=== PATIENT | male | born 1965 | race Caucasian/White ===

== ENCOUNTER 2017-09-27 07:38 | Inpatient (IN) | payer MEDICAID ==
[~2017-09-27] VITALS: Ht 177.8 cm; Wt 63.5 kg
[2017-09-27] MEDS ORDERED: CIPROFLOXACIN HCL 250 MG TABLET PO ONE (10:30)
[2017-09-27] MEDS ORDERED: SODIUM CHLORIDE 0.9% 1,000 ML IV ONE (11:55)
[2017-09-27 12:18] LABS: BASOPHILS % (AUTO) 0.6 % (0.0-2.0); EOSINOPHILS % (AUTO) 2.6 % (1.0-6.0); HEMATOCRIT 38.1 % (41-53); HEMOGLOBIN 13.2 g/dL (13.5-17.5); LYMPHOCYTES # (AUTO) 1.6 K/uL (1.0-4.8); MEAN CORPUSCULAR HGB CONC 34.6 G/dL (31.0-37.0); MEAN CORPUSCULAR VOLUME 81 fL (80-100); MONOCYTES # (AUTO) 0.6 K/uL (0.1-1.0); MONOCYTES % (AUTO) 7.7 % (2.0-9.0); NEUTROPHILS # (AUTO) 5.3 K/uL (1.8-7.7); NEUTROPHILS % (AUTO) 68.1 % (40.0-70.0); PLATELET COUNT (AUTO) 196 K/uL (150-450); RED BLOOD CELL COUNT(AUTO) 4.71 MIL/uL (4.50-5.90); RED CELL DISTRIBUTION WIDTH 15.4 % (11.5-14.5)
[2017-09-27 12:27] LABS: APPEARANCE,URINE CLOUDY (CLEAR); BILIRUBIN,URINE NEGATIVE (NEGATIVE); GLUCOSE, URINE (UA) NEGATIVE (NEGATIVE); KETONES,URINE NEGATIVE (NEGATIVE); LEUKOCYTE ESTERASE ,URINE LARGE (NEGATIVE); NITRATE,URINE NEGATIVE (NEGATIVE); OCCULT BLOOD,URINE LARGE (NEGATIVE); PH,URINE 7.5 (5.0-8.0); PROTEIN,URINE POS 1+ (NEGATIVE); UROBILINOGEN,URINE 0.2 mg/dL (<=1.0)
[2017-09-27 12:35] LABS: ALANINE AMINOTRANSFERASE 156 U/L (12-78); ALBUMIN 3.1 g/dL (3.4-5.0); ALKALINE PHOSPHATASE 131 U/L (46-116); ANION GAP 10 mmol/L (8-16); ASPARTATE AMINOTRANSFERASE 101 U/L (15-37); BILIRUBIN,TOTAL 0.9 mg/dL (0.1-1.0); CALCIUM, TOTAL 8.6 mg/dL (8.8-10.5); CARBON DIOXIDE 26 mmol/L (22-29); CHLORIDE 105 mmol/L (98-107); CREATININE 0.84 mg/dL (0.60-1.30); GLOMERULAR FILTR. RATE CALC > 60 mL/min (>60); GLUCOSE,RANDOM 99 mg/dL (70-110); SODIUM SERUM 141 mmol/L (136-145); TOTAL PROTEIN, SERUM 8.6 g/dL (6.4-8.2); UREA NITROGEN, BLOOD 13 mg/dL (7-18)
[2017-09-27 12:35] LABS: BACTERIA,URINE Few /HPF (None Seen); WBC,URINE 51-100 /HPF (0-5)
[2017-09-27 12:37] LABS: SQUAMOUS EPITHELIAL CELL,UR Rare /LPF (None Seen)
[2017-09-27 12:37] LABS: POTASSIUM 2.9 mmol/L (3.5-5.1)
[2017-09-27 12:39] LABS: B-TYPE NATRIURETIC PEPTIDE 126 pg/mL (0-100)
[2017-09-27 12:43] LABS: LACTIC ACID 1.6 mmol/L (0.4-2.0)
[2017-09-27] MEDS ORDERED: POTASSIUM CHLORIDE 20 MEQ ER TABLET PO ONE (14:30)
[2017-09-27] MEDS ORDERED: BISACODYL 10 MG RECTAL RECTAL SUPPOSITORY PR PRN (15:45)
[2017-09-27] MEDS ORDERED: ACETAMINOPHEN 325 MG TABLET PO PRN (15:45)
[2017-09-27] MEDS ORDERED: ONDANSETRON HCL 4 MG/2 ML VIAL IVP PRN (15:45)
[2017-09-27] MEDS ORDERED: MAGNESIUM HYDROXIDE SUSPENSION 30 ML UDCUP PO PRN (15:45)
[2017-09-27] MEDS ORDERED: ZOLPIDEM TARTRATE 5 MG TABLET PO PRN (15:45)
[2017-09-27] MEDS ORDERED: *CLINICAL-LEVOFLOXACIN IVPB DOSING CLINICAL ONE (15:45)
[2017-09-27 15:50] VITALS: BP 141/83
[2017-09-27] MEDS: HYDROCODONE/ACETAMINOPHEN 5-325 MG TABLET PO PRN (15:58)
[2017-09-27] MEDS ORDERED: POTASSIUM CHLORIDE 20 MEQ ER TABLET PO PRN (16:00)
[2017-09-27] MEDS ORDERED: POTASSIUM CHL 10 MEQ/WATER 50 ML IV PRN (16:00)
[2017-09-27] MEDS ORDERED: SODIUM CHLORIDE 0.9% 500 ML IV ONE (16:31)
[2017-09-27] MEDS: LEVOFLOXACIN 750 MG/D5% WATER 150 ML IV SCH (16:55)
[2017-09-27] MEDS ORDERED: PNEUMOCOCCAL VACCINE POLYVALENT 0.5 ML VIAL [PPSV23] IM ONE (19:45)
[2017-09-27 20:30] VITALS: BP 130/81
[2017-09-27] MEDS: DOCUSATE SODIUM 100 MG CAPSULE PO SCH ×2 (20:31→21:00)
[2017-09-27] MEDS: MORPHINE SULFATE 4 MG/ML SYRINGE IVP PRN (20:51)
[2017-09-28 00:25] VITALS: BP 128/79
[2017-09-28] MEDS: MORPHINE SULFATE 4 MG/ML SYRINGE IVP PRN ×5 (00:27→16:40)
[2017-09-28 04:45] VITALS: BP 165/94
[2017-09-28] MEDS: HYDROCODONE/ACETAMINOPHEN 5-325 MG TABLET PO PRN ×2 (05:09→15:03)
[2017-09-28 07:37] LABS: BASOPHILS % (AUTO) 0.5 % (0.0-2.0); EOSINOPHILS % (AUTO) 4.3 % (1.0-6.0); HEMATOCRIT 34.1 % (41-53); HEMOGLOBIN 11.9 g/dL (13.5-17.5); LYMPHOCYTES # (AUTO) 1.4 K/uL (1.0-4.8); LYMPHOCYTES % (AUTO) 18.8 % (22.0-44.0); MEAN CORPUSCULAR HEMOGLOBIN 28.1 pg (26.0-34.0); MEAN CORPUSCULAR VOLUME 80 fL (80-100); MONOCYTES # (AUTO) 0.5 K/uL (0.1-1.0); MONOCYTES % (AUTO) 7.5 % (2.0-9.0); NEUTROPHILS % (AUTO) 68.9 % (40.0-70.0); PLATELET COUNT (AUTO) 182 K/uL (150-450); RED BLOOD CELL COUNT(AUTO) 4.25 MIL/uL (4.50-5.90); RED CELL DISTRIBUTION WIDTH 15.2 % (11.5-14.5)
[2017-09-28 07:54] VITALS: BP 137/81
[2017-09-28 08:23] LABS: APPEARANCE,URINE CLOUDY (CLEAR); BILIRUBIN,URINE NEGATIVE (NEGATIVE); GLUCOSE, URINE (UA) NEGATIVE (NEGATIVE); KETONES,URINE NEGATIVE (NEGATIVE); LEUKOCYTE ESTERASE ,URINE SMALL (NEGATIVE); NITRATE,URINE NEGATIVE (NEGATIVE); OCCULT BLOOD,URINE LARGE (NEGATIVE); PROTEIN,URINE SEE CONFIRM (NEGATIVE)
[2017-09-28 08:23] LABS: ANION GAP 6 mmol/L (8-16); CALCIUM, TOTAL 8.5 mg/dL (8.8-10.5); CARBON DIOXIDE 27 mmol/L (22-29); CHLORIDE 103 mmol/L (98-107); CREATININE 0.89 mg/dL (0.60-1.30); GLOMERULAR FILTR. RATE CALC > 60 mL/min (>60); GLUCOSE,RANDOM 119 mg/dL (70-110); POTASSIUM 3.7 mmol/L (3.5-5.1); SODIUM SERUM 136 mmol/L (136-145); UREA NITROGEN, BLOOD 13 mg/dL (7-18)
[2017-09-28 08:55] LABS: BACTERIA,URINE Few /HPF (None Seen); RBC,URINE >100 /HPF (0-2); SULFOSALICYLIC ACID,URINE 3+ (Negative)
[2017-09-28] MEDS: DOCUSATE SODIUM 100 MG CAPSULE PO SCH ×3 (09:00→20:33)
[2017-09-28] MEDS: PANTOPRAZOLE SODIUM 40 MG DR TABLET PO SCH (10:09)
[2017-09-28 15:54] VITALS: BP 147/86
[2017-09-28] MEDS: LEVOFLOXACIN 750 MG/D5% WATER 150 ML IV SCH (16:40)
[2017-09-28 19:23] VITALS: BP 159/84
[2017-09-28] MEDS: VENLAFAXINE HCL 75 MG ER CAPSULE PO SCH (20:33)
[2017-09-28] MEDS: BuPROPion HCL 100 MG SR TABLET PO SCH (20:33)
[2017-09-28] MEDS: BusPIRone HCL 10 MG TABLET PO SCH (20:33)
[2017-09-28] MEDS: MORPHINE SULFATE 20 MG PO SCH (20:35)
[2017-09-28 23:35] VITALS: BP 148/85
[2017-09-29 07:06] LABS: BASOPHILS % (AUTO) 0.7 % (0.0-2.0); EOSINOPHILS % (AUTO) 6.2 % (1.0-6.0); HEMATOCRIT 33.6 % (41-53); HEMOGLOBIN 11.7 g/dL (13.5-17.5); LYMPHOCYTES # (AUTO) 1.4 K/uL (1.0-4.8); LYMPHOCYTES % (AUTO) 25.2 % (22.0-44.0); MEAN CORPUSCULAR HGB CONC 34.9 G/dL (31.0-37.0); MEAN CORPUSCULAR VOLUME 80 fL (80-100); MONOCYTES # (AUTO) 0.5 K/uL (0.1-1.0); MONOCYTES % (AUTO) 9.3 % (2.0-9.0); NEUTROPHILS # (AUTO) 3.2 K/uL (1.8-7.7); NEUTROPHILS % (AUTO) 58.6 % (40.0-70.0); PLATELET COUNT (AUTO) 169 K/uL (150-450); RED BLOOD CELL COUNT(AUTO) 4.18 MIL/uL (4.50-5.90); RED CELL DISTRIBUTION WIDTH 14.8 % (11.5-14.5)
[2017-09-29 07:17] LABS: ANION GAP 3 mmol/L (8-16); CALCIUM, TOTAL 8.4 mg/dL (8.8-10.5); CARBON DIOXIDE 30 mmol/L (22-29); CHLORIDE 101 mmol/L (98-107); CREATININE 0.88 mg/dL (0.60-1.30); GLOMERULAR FILTR. RATE CALC > 60 mL/min (>60); GLUCOSE,RANDOM 103 mg/dL (70-110); POTASSIUM 4.1 mmol/L (3.5-5.1); SODIUM SERUM 134 mmol/L (136-145); UREA NITROGEN, BLOOD 17 mg/dL (7-18)
[2017-09-29 07:20] VITALS: BP 133/68
[2017-09-29] MEDS: DOCUSATE SODIUM 100 MG CAPSULE PO SCH ×2 (08:16→20:52)
[2017-09-29] MEDS: VENLAFAXINE HCL 75 MG ER CAPSULE PO SCH ×2 (08:16→20:53)
[2017-09-29] MEDS: MULTIVITAMINS WITH MINERALS, THERAPEUTIC TABLET PO SCH (08:16)
[2017-09-29] MEDS: BusPIRone HCL 10 MG TABLET PO SCH ×2 (08:16→20:52)
[2017-09-29] MEDS: THIAMINE HCL 100 MG TABLET PO SCH (08:16)
[2017-09-29] MEDS: BuPROPion HCL 100 MG SR TABLET PO SCH ×2 (08:17→20:52)
[2017-09-29] MEDS: MORPHINE SULFATE 20 MG PO SCH ×2 (08:17→20:52)
[2017-09-29] MEDS: PANTOPRAZOLE SODIUM 40 MG DR TABLET PO SCH (08:18)
[2017-09-29 11:07] VITALS: BP 148/75
[2017-09-29] MEDS: LEVOFLOXACIN 750 MG/D5% WATER 150 ML IV SCH (16:05)
[2017-09-29 16:09] VITALS: BP 149/81
[2017-09-29 20:10] VITALS: BP 124/73
[2017-09-29 23:44] VITALS: BP 114/70
[2017-09-30 04:46] VITALS: BP 116/75
[2017-09-30 06:30] LABS: BASOPHILS % (AUTO) 0.7 % (0.0-2.0); EOSINOPHILS % (AUTO) 5.3 % (1.0-6.0); HEMATOCRIT 31.1 % (41-53); HEMOGLOBIN 10.8 g/dL (13.5-17.5); LYMPHOCYTES # (AUTO) 1.3 K/uL (1.0-4.8); LYMPHOCYTES % (AUTO) 24.5 % (22.0-44.0); MEAN CORPUSCULAR HGB CONC 34.9 G/dL (31.0-37.0); MEAN CORPUSCULAR VOLUME 80 fL (80-100); MONOCYTES # (AUTO) 0.4 K/uL (0.1-1.0); MONOCYTES % (AUTO) 8.2 % (2.0-9.0); NEUTROPHILS # (AUTO) 3.3 K/uL (1.8-7.7); NEUTROPHILS % (AUTO) 61.3 % (40.0-70.0); PLATELET COUNT (AUTO) 155 K/uL (150-450); RED BLOOD CELL COUNT(AUTO) 3.87 MIL/uL (4.50-5.90); RED CELL DISTRIBUTION WIDTH 15.1 % (11.5-14.5)
[2017-09-30 06:51] LABS: ANION GAP 3 mmol/L (8-16); CALCIUM, TOTAL 8.4 mg/dL (8.8-10.5); CARBON DIOXIDE 30 mmol/L (22-29); CHLORIDE 104 mmol/L (98-107); CREATININE 0.82 mg/dL (0.60-1.30); GLOMERULAR FILTR. RATE CALC > 60 mL/min (>60); GLUCOSE,RANDOM 114 mg/dL (70-110); SODIUM SERUM 137 mmol/L (136-145); UREA NITROGEN, BLOOD 21 mg/dL (7-18)
[2017-09-30 08:16] VITALS: BP 113/66
[2017-09-30] MEDS: MORPHINE SULFATE 20 MG PO SCH ×2 (08:32→20:47)
[2017-09-30] MEDS: PANTOPRAZOLE SODIUM 40 MG DR TABLET PO SCH (09:00)
[2017-09-30] MEDS: BusPIRone HCL 10 MG TABLET PO SCH ×2 (09:00→20:48)
[2017-09-30] MEDS: DOCUSATE SODIUM 100 MG CAPSULE PO SCH ×2 (09:00→20:47)
[2017-09-30] MEDS: BuPROPion HCL 100 MG SR TABLET PO SCH ×2 (09:00→20:48)
[2017-09-30] MEDS: THIAMINE HCL 100 MG TABLET PO SCH (09:00)
[2017-09-30] MEDS: VENLAFAXINE HCL 75 MG ER CAPSULE PO SCH ×2 (09:00→20:47)
[2017-09-30] MEDS: MULTIVITAMINS WITH MINERALS, THERAPEUTIC TABLET PO SCH (09:00)
[2017-09-30] MEDS ORDERED: RINGERS SOLUTION,LACTATED 1,000 ML IV ONE (10:00)
[2017-09-30] MEDS ORDERED: SODIUM CL IRRIG SOLN BAG 3,000 ML IRRIG ONE (10:19)
[2017-09-30 12:33] VITALS: BP 106/66
[2017-09-30] MEDS: BETHANECHOL CHLORIDE 25 MG TABLET PO SCH ×2 (15:55→20:47)
[2017-09-30] MEDS: LEVOFLOXACIN 750 MG/D5% WATER 150 ML IV SCH (15:56)
[2017-09-30 16:28] VITALS: BP 99/65
[2017-09-30 19:36] VITALS: BP 111/55
[2017-09-30 20:42] LABS: AMPHET/METH SCREEN,URINE POSITIVE (NEGATIVE); BARBITURATE SCREEN, URINE NEGATIVE (NEGATIVE); BENZODIAZEPINES SCREEN,URINE POSITIVE (NEGATIVE); CANNABINOID SCREEN,URINE POSITIVE (NEGATIVE); COCAINE SCREEN,URINE NEGATIVE (NEGATIVE); METHADONE SCREEN, URINE NEGATIVE (NEGATIVE); OPIATE SCREEN,URINE POSITIVE (NEGATIVE); PHENCYCLIDINE SCREEN,URINE NEGATIVE (NEGATIVE)
[2017-09-30] MEDS: TAMSULOSIN HCL 0.4 MG CAPSULE PO SCH (20:47)
[2017-09-30 23:41] VITALS: BP 118/57
[2017-10-01 04:19] VITALS: BP 109/65
[2017-10-01] MEDS ORDERED: FentaNYL CITRATE-PF 100 MCG/2 ML VIAL IVP ONE (05:14)
[2017-10-01] MEDS ORDERED: SUCCINYLCHOLINE CHLORIDE 20 MG/ML 10 ML VIAL IVP ONE (05:14)
[2017-10-01] MEDS ORDERED: LIDOCAINE HCL/PF 2% 5 ML VIAL IM ONE (05:14)
[2017-10-01] MEDS ORDERED: ALBUTEROL SULFATE HFA 90 MCG/PUFF 8 GM INHALER IH ONE (05:14)
[2017-10-01] MEDS ORDERED: GLYCOPYRROLATE 0.2 MG/ML VIAL IM ONE (05:14)
[2017-10-01] MEDS ORDERED: MIDAZOLAM HCL 2 MG/2 ML VIAL IVP ONE (05:14)
[2017-10-01] MEDS ORDERED: PROPOFOL 1% 20 ML VIAL IVP ONE (05:14)
[2017-10-01 07:35] VITALS: BP 107/62
[2017-10-01] MEDS: DOCUSATE SODIUM 100 MG CAPSULE PO SCH ×2 (08:51→20:22)
[2017-10-01] MEDS: PANTOPRAZOLE SODIUM 40 MG DR TABLET PO SCH (08:51)
[2017-10-01] MEDS: BusPIRone HCL 10 MG TABLET PO SCH ×2 (08:51→20:22)
[2017-10-01] MEDS: MULTIVITAMINS WITH MINERALS, THERAPEUTIC TABLET PO SCH (08:51)
[2017-10-01] MEDS: TAMSULOSIN HCL 0.4 MG CAPSULE PO SCH ×2 (08:51→20:23)
[2017-10-01] MEDS: BuPROPion HCL 100 MG SR TABLET PO SCH ×2 (08:52→20:22)
[2017-10-01] MEDS: THIAMINE HCL 100 MG TABLET PO SCH (08:52)
[2017-10-01] MEDS: VENLAFAXINE HCL 75 MG ER CAPSULE PO SCH ×2 (08:52→20:22)
[2017-10-01] MEDS: BETHANECHOL CHLORIDE 25 MG TABLET PO SCH ×3 (08:52→22:30)
[2017-10-01] MEDS: MORPHINE SULFATE 20 MG PO SCH ×2 (08:58→20:22)
[2017-10-01 11:16] VITALS: BP 100/60
[2017-10-01 15:19] VITALS: BP 106/57
[2017-10-01] MEDS: LEVOFLOXACIN 750 MG/D5% WATER 150 ML IV SCH (16:35)
[2017-10-01 20:29] VITALS: BP 102/60
[2017-10-01 23:00] VITALS: BP 103/58
[2017-10-02 05:33] VITALS: BP 106/62
[2017-10-02 08:06] VITALS: BP 110/58
[2017-10-02] MEDS: MORPHINE SULFATE 20 MG PO SCH (10:26)
[2017-10-02] MEDS: BuPROPion HCL 100 MG SR TABLET PO SCH (10:26)
[2017-10-02] MEDS: MULTIVITAMINS WITH MINERALS, THERAPEUTIC TABLET PO SCH (10:27)
[2017-10-02] MEDS: BETHANECHOL CHLORIDE 25 MG TABLET PO SCH ×2 (10:27→15:39)
[2017-10-02] MEDS: VENLAFAXINE HCL 75 MG ER CAPSULE PO SCH (10:27)
[2017-10-02] MEDS: BusPIRone HCL 10 MG TABLET PO SCH (10:27)
[2017-10-02] MEDS: TAMSULOSIN HCL 0.4 MG CAPSULE PO SCH (10:27)
[2017-10-02] MEDS: PANTOPRAZOLE SODIUM 40 MG DR TABLET PO SCH (10:27)
[2017-10-02] MEDS: DOCUSATE SODIUM 100 MG CAPSULE PO SCH (10:28)
[2017-10-02] MEDS: THIAMINE HCL 100 MG TABLET PO SCH (10:28)
[2017-10-02] MEDS ORDERED: BuPROPion HCL 150 MG SR TABLET PO SCH (11:45)
[2017-10-02 13:24] LABS: BASOPHILS % (AUTO) 0.6 % (0.0-2.0); EOSINOPHILS % (AUTO) 3.4 % (1.0-6.0); HEMATOCRIT 30.2 % (41-53); HEMOGLOBIN 10.4 g/dL (13.5-17.5); LYMPHOCYTES % (AUTO) 22.4 % (22.0-44.0); MEAN CORPUSCULAR HGB CONC 34.4 G/dL (31.0-37.0); MEAN CORPUSCULAR VOLUME 81 fL (80-100); MONOCYTES # (AUTO) 0.4 K/uL (0.1-1.0); MONOCYTES % (AUTO) 9.2 % (2.0-9.0); NEUTROPHILS % (AUTO) 64.4 % (40.0-70.0); PLATELET COUNT (AUTO) 115 K/uL (150-450); RED BLOOD CELL COUNT(AUTO) 3.72 MIL/uL (4.50-5.90); RED CELL DISTRIBUTION WIDTH 14.5 % (11.5-14.5)
[2017-10-02 13:36] LABS: ANION GAP 5 mmol/L (8-16); CALCIUM, TOTAL 8.1 mg/dL (8.8-10.5); CARBON DIOXIDE 29 mmol/L (22-29); CHLORIDE 103 mmol/L (98-107); CREATININE 0.92 mg/dL (0.60-1.30); GLOMERULAR FILTR. RATE CALC > 60 mL/min (>60); GLUCOSE,RANDOM 148 mg/dL (70-110); POTASSIUM 3.8 mmol/L (3.5-5.1); SODIUM SERUM 137 mmol/L (136-145); UREA NITROGEN, BLOOD 22 mg/dL (7-18)
[2017-10-02 13:42] LABS: ALANINE AMINOTRANSFERASE 99 U/L (12-78); ALBUMIN 2.3 g/dL (3.4-5.0); ALKALINE PHOSPHATASE 85 U/L (46-116); ASPARTATE AMINOTRANSFERASE 96 U/L (15-37); BILIRUBIN,TOTAL 0.5 mg/dL (0.1-1.0); TOTAL PROTEIN, SERUM 6.7 g/dL (6.4-8.2)
[2017-10-02] MEDS: LEVOFLOXACIN 750 MG/D5% WATER 150 ML IV SCH (15:39)
[2017-10-02] MEDS ORDERED: MORP20CA19 PO (15:41)
[2017-10-02] MEDS ORDERED: THIA100T67 PO (15:42)
[2017-10-02] MEDS ORDERED: TAMS0.4C32 PO (15:42)
[2017-10-02] MEDS ORDERED: VENL-193 PO (15:43)
[2017-10-02] MEDS ORDERED: BETH25 PO (15:43)
[2017-10-02] MEDS ORDERED: BUPR150T3 PO (15:44)
[2017-10-02] MEDS ORDERED: BUPR75 PO (15:44)
[2017-10-02] MEDS ORDERED: BUSP10TA23 PO (15:45)
[2017-10-02] MEDS ORDERED: LEVO500 PO (15:45)
[2017-10-02] MEDS ORDERED: MULT-1203 PO (15:50)
[2017-10-02] MEDS ORDERED: PANT40TA25 PO (15:50)
== END 2017-10-02 17:20 | disposition home or self-care (01) | DRG 690 ==
LOC: EMS 07:39 → 6N 13:48
PROVIDERS: ADMIT Internal Medicine; ATTEND Internal Medicine
PROC: 0TJB8ZZ Inspection of Bladder, Via Natural or Artificial Opening Endoscopic (ICD-10-PCS; principal; 2017-09-30 11:15)
DX: N30.80 Other cystitis without hematuria (principal); N31.9 Neuromuscular dysfunction of bladder, unspecified; F17.210 Nicotine dependence, cigarettes, uncomplicated; F39 Unspecified mood [affective] disorder; B19.20 Unspecified viral hepatitis C without hepatic coma; F10.10 Alcohol abuse, uncomplicated; D64.9 Anemia, unspecified; R62.7 Adult failure to thrive; E87.6 Hypokalemia; Z91.19 Patient's noncompliance with other medical treatment and regimen; Z79.899 Other long term (current) drug therapy; Z59.0 Homelessness
CPT/HCPCS: 72100; 72131; 83605; 84132; 87040; 87081; 87086; 90471; 93005; 99285; G0480; J0330; J1956; J2250; J2270; J2704; J3010; J3490; J3535; J7040; J7120

== ENCOUNTER 2020-06-03 21:44 | Emergency (ER) | payer MEDICAID ==
[~2020-06-03] VITALS: Ht 170.2 cm; Wt 68.2 kg
[~2020-06-03 21:44] MED LIST: BETH25 PO; BUPR150T3 PO; BUSP10TA23 PO; LEVO-72 PO; MORP20CA19 PO; MULT-1203 PO; PANT-31 PO; TAMS-13 PO; THIAMINE HCL100 MG PO; VENL-193 PO
[2020-06-03 22:27] VITALS: BP 119/53
[2020-06-03] MEDS ORDERED: IBUPROFEN 400 MG TABLET PO ONE (23:00)
[2020-06-03 23:17] LABS: APPEARANCE,URINE CLOUDY (CLEAR); BILIRUBIN,URINE NEGATIVE (NEGATIVE); GLUCOSE, URINE (UA) NEGATIVE (NEGATIVE); KETONES,URINE NEGATIVE (NEGATIVE); LEUKOCYTE ESTERASE ,URINE MODERATE (NEGATIVE); NITRATE,URINE NEGATIVE (NEGATIVE); OCCULT BLOOD,URINE LARGE (NEGATIVE); PROTEIN,URINE TRACE (NEGATIVE)
[2020-06-03 23:25] LABS: BACTERIA,URINE Moderate /HPF (None Seen); RBC,URINE 51-100 /HPF (0-2); WBC,URINE 26-50 /HPF (0-5)
[2020-06-03 23:26] LABS: SQUAMOUS EPITHELIAL CELL,UR Few /LPF (None Seen)
[2020-06-04] MEDS ORDERED: CefTRIAXone SODIUM 1 GM/VIAL IM ONE (00:45)
[2020-06-04] MEDS ORDERED: LIDOCAINE/PF 1% 2 ML VIAL IM ONE (00:45)
[2020-06-04] MEDS ORDERED: ACETAMINOPHEN 325 MG TABLET PO ONE (03:30)
== END 2020-06-04 05:30 | disposition home or self-care (01) ==
LOC: EMS 21:44
DX: T83.091A Other mechanical complication of indwelling urethral catheter, initial encounter (principal); N39.0 Urinary tract infection, site not specified; F17.210 Nicotine dependence, cigarettes, uncomplicated; Z59.0 Homelessness; Z79.899 Other long term (current) drug therapy
CPT/HCPCS: 81001; 87086; 99283; J0696; J3490

== ENCOUNTER 2020-06-04 10:02 | Emergency (ER) | payer MEDICAID ==
[~2020-06-04] VITALS: Ht 167.6 cm; Wt 81.8 kg
[2020-06-04 14:11] VITALS: BP 106/52
[2020-06-04 14:44] LABS: BASOPHILS % (AUTO) 1.4 % (0.0-2.0); EOSINOPHILS % (AUTO) 4.7 % (1.0-6.0); HEMATOCRIT 28.1 % (41-53); HEMOGLOBIN 9.4 g/dL (13.5-17.5); LYMPHOCYTES # (AUTO) 0.9 K/uL (1.0-4.8); MEAN CORPUSCULAR HEMOGLOBIN 29.3 pg (26.0-34.0); MEAN CORPUSCULAR HGB CONC 33.4 G/dL (31.0-37.0); MEAN CORPUSCULAR VOLUME 88 fL (80-100); MONOCYTES # (AUTO) 0.3 K/uL (0.1-1.0); MONOCYTES % (AUTO) 6.9 % (2.0-9.0); NEUTROPHILS # (AUTO) 2.6 K/uL (1.8-7.7); PLATELET COUNT (AUTO) 211 K/uL (150-450); RED CELL DISTRIBUTION WIDTH 15.5 % (11.5-14.5)
[2020-06-04 14:54] LABS: ANION GAP 5 mmol/L (8-16); CALCIUM, TOTAL 8.1 mg/dL (8.8-10.5); CARBON DIOXIDE 27 mmol/L (22-29); CHLORIDE 112 mmol/L (98-107); GLOMERULAR FILTR. RATE CALC > 60 mL/min (>60); GLUCOSE,RANDOM 127 mg/dL (70-110); POTASSIUM 3.7 mmol/L (3.5-5.1); SODIUM SERUM 144 mmol/L (136-145); UREA NITROGEN, BLOOD 17 mg/dL (7-18)
[2020-06-04 14:59] LABS: ALANINE AMINOTRANSFERASE 41 U/L (12-78); ALBUMIN 1.7 g/dL (3.4-5.0); ALKALINE PHOSPHATASE 121 U/L (46-116); ASPARTATE AMINOTRANSFERASE 46 U/L (15-37); BILIRUBIN,TOTAL 0.9 mg/dL (0.1-1.0); TOTAL PROTEIN, SERUM 6.3 g/dL (6.4-8.2)
[2020-06-04 15:01] LABS: LACTIC ACID 1.3 mmol/L (0.4-2.0)
[2020-06-04 15:30] LABS: COVID AG,FIA SOURCE NASOPHARYNGEAL
== END 2020-06-04 18:30 | disposition home or self-care (01) ==
LOC: EMS 10:09
DX: N39.0 Urinary tract infection, site not specified (principal); F17.210 Nicotine dependence, cigarettes, uncomplicated; Z20.822 Contact with and (suspected) exposure to COVID-19
CPT/HCPCS: 36415; 80053; 83605; 85025; 87040; 87426; 99283; G0480